=== PATIENT | female | born 2005 | race Caucasian/White ===

== ENCOUNTER 2025-06-15 17:54 | Emergency (ER) | payer MEDICAID, OTHER ==
[~2025-06-15] VITALS: Ht 157.5 cm; Wt 75.0 kg
[2025-06-15 17:58] VITALS: O2SAT 99
[2025-06-15] MEDS: DEXTROSE 50% WATER 50ML SYRINGE IV ONE (18:41)
[2025-06-15] MEDS: DEXT 5%/0.45% NACL 1000ML 1,000 ML IV ONE (18:42)
[2025-06-15 18:53] LABS: BASOPHILS % 0.2 % (0.0-2.0); EOSINOPHILS % 0.1 % (0.0-5.0); HEMATOCRIT. 37.7 % (36.0-48.0); HEMOGLOBIN. 12.5 g/dL (12.0-16.0); LYMPHOCYTES % 9.5 % (20.0-50.0); MEAN PLATELET VOLUME 9.0 fl (7.4-10.4); MONOCYTES % 7.6 % (2.0-8.0); NEUTROPHILS % 82.6 % (40.0-76.0); PLATELET 268 x1000/uL (130-400); RED BLOOD CELL COUNT 4.07 mill/uL (4.2-5.4); RED CELL DISTRIBUTION WIDTH 13.3 % (11.6-14.6)
[2025-06-15] MEDS: ACETAMINOPHEN 500MG TABLET PO ONE (18:55)
[2025-06-15 19:04] LABS: INR 1.0
[2025-06-15 19:14] LABS: CLARITY URINE CLOUDY (CLEAR); COLOR URINE DARK YELLOW (YELLOW); GLUCOSE URINE NEGATIVE (NEGATIVE); KETONES URINE 1+ (NEGATIVE); LEUKOCYTE ESTERASE URINE 3+ (NEGATIVE); NITRITE URINE NEGATIVE (NEGATIVE); OCCULT BLOOD URINE 1+ (NEGATIVE); PH URINE 5.5 (4.5-8.0); PROTEIN URINE 2+ (NEGATIVE); SPECIFIC GRAVITY URINE 1.015 (1.005-1.030); UROBILINOGEN URINE 1.0 E.U./dL (0.2-1.0)
[2025-06-15 19:15] LABS: CREATININE 0.6 mg/dL (0.6-1.0)
[2025-06-15 19:16] LABS: UREA NITROGEN BLOOD < 5 mg/dL (9-23)
[2025-06-15 19:17] LABS: ASPARTATE AMINOTRANSFERASE 19 IU/L (<34)
[2025-06-15 19:18] LABS: BILIRUBIN DIRECT 0.3 mg/dL (<=3.0); BILIRUBIN TOTAL 1.0 mg/dL (0.1-1.0); PROTEIN TOTAL 6.7 g/dL (6.0-8.3)
[2025-06-15 19:23] LABS: *AMPHETAMINES SCREEN URINE NEGATIVE (NEGATIVE); *BARBITURATES SCREEN URINE NEGATIVE (NEGATIVE); *BENZODIAZEPINES SCREEN URINE NEGATIVE (NEGATIVE); *COCAINE SCREEN URINE NEGATIVE (NEGATIVE); CANNABINOID URINE SCREEN NEGATIVE (NEGATIVE); ECSTASY MDMA SCREEN URINE NEGATIVE (NEGATIVE); METHADONE URINE SCREEN NEGATIVE (NEGATIVE); OPIATES URINE SCREEN NEGATIVE (NEGATIVE); PHENCYCLIDINE URINE SCREEN NEGATIVE (NEGATIVE)
[2025-06-15] MEDS: CEFTRIAXONE 2GM/50ML 50 ML IV SCH (19:25)
[2025-06-15 19:29] LABS: B-HCG QUANTITATIVE 56305 mIU/mL (<6)
[2025-06-15 19:45] LABS: HCG SCREEN POSITIVE
[2025-06-15] MEDS: SODIUM CHLORIDE 0.9% 1,000 ML IV ONE ×2 (19:50)
[2025-06-15 19:52] LABS: BACTERIA URINE 2+; SQUAMOUS EPITHELIAL CELL URINE 1+ /lpf (RARE/1+); WBC URINE TNTC /hpf (0-2)
[2025-06-15 20:30] VITALS: BP 108/65; PULSE 106; RESP 24; TEMP 37.1; O2SAT 98
[2025-06-17 04:11] LABS: HSV TYPE 2 SPECIFIC AB IGG Non Reactive (Non Reactive)
[2025-06-17 17:07] LABS: CHLAMYDIA TRACHOMATIS NAA Negative (Negative); NEISSERIA GONORRHOEAE NAA Negative (Negative)
== END 2025-06-15 20:50 | disposition short-term general hospital (02) ==
LOC: ER 17:54
DX: O23.03 Infections of kidney in pregnancy, third trimester (principal); N13.6 Pyonephrosis; R10.20 Pelvic and perineal pain unspecified side; Z79.899 Other long term (current) drug therapy; Z3A.34 34 weeks gestation of pregnancy
CPT/HCPCS: 99285; 96365; 76770; 76805; 96361; 86592; 86695; 86696; 87491; 87591; 80076; 80305; 80048; 81003; 84703; 84702; 83735; 85025; 85610; 85730; 86850; 86900; 86901; 87340; 87040; 87086; 87186; 87077; 36415; 93005; G0480; J0696; J7030; 80320; 96375